=== PATIENT | male | born 1995 | race African-American/Black ===

== ENCOUNTER 2018-07-19 14:11 | Emergency (ER) | payer OTHER ==
[~2018-07-19] VITALS: Ht 195.6 cm; Wt 104.8 kg
[2018-07-19 14:12] VITALS: BP 119/61
--- NOTE | 2018-07-19 15:33 | REP ---
RIGHT KNEE, FIVE VIEWS: HISTORY: Pain. There is no acute fracture or dislocation. The joint spaces are normal in appearance. IMPRESSION: There is no acute fracture or dislocation. Electronically Signed by Salomon Desir MD 07/19/2018 03:36 P
== END 2018-07-19 15:26 | disposition home or self-care (01) ==
LOC: M ED 14:11
DX: M25.562 Pain in left knee (principal)

== ENCOUNTER 2018-10-29 06:40 | Emergency (ER) | payer OTHER ==
[~2018-10-29] VITALS: Ht 193 cm; Wt 100.0 kg
[2018-10-29] MEDS ORDERED: LIDOCAINE 1% SDV 5 ML VIAL DILUENT ONE (07:45)
[2018-10-29] MEDS ORDERED: cefTRIAXone SOD 250 MG VIAL (J0696) IM ONE (07:45)
[2018-10-29] MEDS ORDERED: AZITHROMYCIN 250 MG TAB PO ONE (07:45)
[2018-10-29 08:02] VITALS: BP 128/78
[2018-10-29 11:23] LABS: CHLAMYDIA DNA AMPLIFICATION POSITIVE (NEGATIVE); GC DNA AMPLIFICATION NEGATIVE (NEGATIVE)
== END 2018-10-29 08:04 | disposition home or self-care (01) ==
LOC: M ED 06:40
DX: N34.2 Other urethritis (principal); Z20.2 Contact with and (suspected) exposure to infections with a predominantly sexual mode of transmission
CPT/HCPCS: 87086; 87661; 96372; 99284; J0696

== ENCOUNTER 2019-06-21 02:00 | Emergency (ER) | payer OTHER ==
[~2019-06-21] VITALS: Ht 195.6 cm; Wt 109.1 kg
[2019-06-21] MEDS ORDERED: IBUPROFEN 800 MG TAB PO ONE (02:30)
[2019-06-21 03:12] LABS: INFLUENZA A AMPLIFICATION NEGATIVE (NEGATIVE); INFLUENZA B AMPLIFICATION NEGATIVE (NEGATIVE)
[2019-06-21 07:29] LABS: BASO % 0.2 % (0.0-1.0); EOS # 0.1 10^3/uL (0.0-0.5); EOS % 1.7 % (0.0-3.0); HEMATOCRIT 39.3 % (42.0-52.0); LYMPH # 1.1 10^3/uL (1.5-5.0); LYMPH % 18.8 % (24.0-44.0); MEAN CORPUSCULAR HEMOGLOBIN 29.6 pg (27.0-33.0); MEAN CORPUSCULAR HGB CONC 33.1 g/dl (32.0-36.5); MEAN CORPUSCULAR VOLUME 89.5 fl (80.0-96.0); MONO # 0.9 10^3/uL (0.0-0.8); MONO % 14.8 % (0.0-5.0); NEUTROPHILS # 3.7 10^3/uL (1.5-8.5); NEUTROPHILS % 64.3 % (36.0-66.0); PLATELET COUNT, AUTOMATED 207 10^3/uL (150-450); RED BLOOD COUNT 4.39 10^6/uL (4.30-6.10); WHITE BLOOD COUNT 5.8 10^3/uL (4.0-10.0)
[2019-06-21 07:57] LABS: ALBUMIN 3.9 GM/DL (3.2-5.2); ALT/SGPT 44 U/L (12-78); BILIRUBIN,DIRECT 0.2 MG/DL (0.0-0.2); BILIRUBIN,TOTAL 0.6 MG/DL (0.2-1.0); BLOOD UREA NITROGEN 10 MG/DL (7-18); CARBON DIOXIDE LEVEL 30 MEQ/L (21-32); CHLORIDE LEVEL 103 MEQ/L (98-107); GLOMERULAR FILTRATION RATE > 60.0 (>60); GLUCOSE, FASTING 93 MG/DL (70-100); LIPASE 63 U/L (73-393); SODIUM LEVEL 138 MEQ/L (136-145); TOTAL PROTEIN 7.3 GM/DL (6.4-8.2)
[2019-06-21 08:40] VITALS: BP 132/71
[2019-06-21] MEDS ORDERED: ACETAMINOPHEN 325 MG TAB PO ONE (08:45)
== END 2019-06-21 08:53 | disposition home or self-care (01) ==
LOC: M ED 02:00
DX: J00 Acute nasopharyngitis [common cold] (principal); B34.9 Viral infection, unspecified